=== PATIENT | female | born 1955 ===

== ENCOUNTER 2017-06-08 23:38 | Emergency (ER) | payer OTHER ==
[~2017-06-08] VITALS: Ht 160 cm; Wt 104.3 kg
[2017-06-08] MEDS ORDERED: IBUPROFEN 600 MG TAB PO STA (23:51)
[2017-06-08] MEDS ORDERED: IBUPROFEN 600 MG TAB ONE (23:58)
[2017-06-09] MEDS ORDERED: ONDANSETRON HCL 4 MG ORAL DISINTEGRATING TAB PO ONE
[2017-06-09 00:18] LABS: STREPTOCOCCUS GRP A ANTIGEN NEGATIVE (NEGATIVE)
[2017-06-09 00:19] LABS: INFLUENZAE A&B ANTIGEN (RAPID) POSITIVE FLU A (NEGATIVE)
--- NOTE | 2017-06-09 00:44 | Diagnostic Imaging Report ---
CHEST 2 VIEWS, Technique: CHEST 2 VIEWS Comparison: None Clinical history: Fever, cough DISCUSSION: Heart/mediastinum: Heart size is upper limits of normal. Normal mediastinal contours. Lungs/pleural spaces: No consolidation or edema. No pleural effusion or pneumothorax. IMPRESSION: No acute abnormality. Signed by: Dr Ewelina Mitchell MD on 06/09/2017 12:40 AM
== END 2017-06-09 01:08 | disposition home or self-care (01) ==
LOC: ER 23:38
DX: R50.9 Fever, unspecified (principal); R05 Cough; J10.1 Influenza due to other identified influenza virus with other respiratory manifestations
CPT/HCPCS: 71020; 83518; 87070; 87400; 99283